=== PATIENT | female | born 1950 | race Caucasian/White ===

== ENCOUNTER 2023-11-17 07:36 | Day surgery (SDC) | payer OTHER, SELFPAY ==
--- NOTE | 2023-11-17 | OP_ITS ---
OPERATION DATE: 11/17/2023 SURGEON: Mic Sanches D.O. PREOPERATIVE DIAGNOSIS: Nuclear sclerotic cataract left eye POSTOPERATIVE DIAGNOSIS: Nuclear sclerotic cataract left eye. PROCEDURE NAME: Cataract extraction with intraocular lens placement of the left eye. ANESTHESIA: Topical ESTIMATED BLOOD LOSS: Zero. COMPLICATIONS: None. PROCEDURE: The patient was brought to the Operating Room in supine position. After proper identification, the left eye was prepped and draped in a sterile ophthalmic fashion. A paracentesis was created at the 5 o'clock position. Approximately 1 cc of unpreserved Xylocaine was injected into the anterior chamber followed by Amvisc Plus. Using a 2.6 mm Keratome blade, a clear corneal incision was created at the 2 o'clock limbus. A cystotome was then used to begin a curvilinear capsulorrhexis that was continued for 360 degrees with the Utrata forceps. BSS on a 26 gauge cannula was injected beneath the anterior capsule to hydrodissect as well as hydrodelineate the lens. After ensuring mobility, phacoemulsification was performed in a [id number]-type fashion. After all nuclear material had been removed from the eye, IA was introduced and all residual cortical material was cleaned up. Additional Amvisc Plus was injected into the posterior bag and a lens model MX60, 22.5 diopters was injected and dialed into position. After ensuring centration, IA was re- introduced into the anterior chamber and all residual Amvisc Plus was removed from the eye. BSS on a 30 gauge cannula was injected into the stroma of both the clear corneal incision as well as paracentesis to hydrate the wounds. Additional BSS was injected into the anterior chamber to pressurize the eye at approximately 20 to 22 mmHg by finger tension. 0.1 cc of antibiotic was injected into the anterior chamber, and Weck-Leticia sponges were used to check the wounds to be watertight. One drop of apraclonidine and one drop of prednisolone acetate were placed into the eye and a shield was placed over top. The patient was sent to the postoperative area in satisfactory condition to follow up the following day for postoperative care. RENUKA
--- NOTE | 2023-11-17 | HP_ITS ---
PREOPERATIVE HISTORY AND PHYSICAL ? Date:? 11/16/2023 ? HISTORY:? The patient is a 73-year-old white female with complaints of declining vision out of her left eye.? She states that the gradual onset of this has been occurring over the last 1-2 years.? She recently stated that she is having more difficulty driving in the evening time, due to headlights creating glare and halos.? She also states having difficulty seeing road signs at a distance.? She is feeling that her TV watching ability is worsening with the TV guide becoming more blurry.? ? PAST OCULAR HISTORY:? Denies. ? PAST MEDICAL HISTORY:? Hypertension, GERD.? ? SOCIAL HISTORY:? Denies tobacco, alcohol or recreational drug abuse. ? SYSTEMIC MEDICATIONS:? Include omeprazole, lisinopril, amlodipine.? ? ALLERGIES TO MEDICATIONS:? Denies. ? REVIEW OF SYSTEMS:? No pertinent positives. ? PHYSICAL EXAM: ? GENERAL:? In general, she is awake, alert and oriented x3, well developed, well nourished, in no acute distress.? ? HEART:? Regular rate and rhythm. ? LUNGS:? Clear bilaterally. ? ABDOMEN:? Soft, non-tender, non-distended. ? EXTREMITIES:? No pitting edema. ? OPHTHALMIC EXAM:? Revealed a visual acuity of 20/60 in the right eye and 20/40 in the left eye, glared to 20/200 and 20/100 respectively.? Slit lamp exam revealed blepharitis with a severe decrease in tear film bilaterally.? Conjunctiva, cornea, anterior chamber and iris were within normal limits bilaterally.? Lens status demonstrated 2-3+ nuclear sclerosis with vacuoles and 1+ PSC bilaterally.? ? FUNDUS EXAM:? Revealed good view with good dilation bilaterally.? Optic discs, macula, vessels, periphery and vitreous were within normal limits bilaterally.?? ? ASSESSMENT AND PLAN:? Visually significant cataract, left eye.? After the risks, benefits, alternatives as well as expectations were delivered to the patient, she elected to go forward with cataract removal.? She understands those risks to include but not limited to infection, bleeding, loss of vision or loss of the eye itself.? Secondly, she understands that postoperatively she is likely to require spectacle correction for her best visual acuity.? Finally, a complete ophthalmic exam was performed and there was not determined to be any other source of vision decline other than that of cataract.? ? After understanding all risks as well as expectations, she elected to go forward with the procedures as listed above and will be doing so in the near future. RENUKA
[2023-11-17] MEDS: CYCLOPENTOLATE HCL 1% OP SOL 40 DROP/2 ML BOTTLE OP ×4 (07:54→08:35)
[2023-11-17] MEDS: DIAZEPAM 5 MG TABLET PO (07:54)
[2023-11-17] MEDS: TROPICAMIDE 1% OP SOL 300 DROP/15 ML BOTTLE OP ×4 (07:54→08:35)
[2023-11-17] MEDS: BESIFLOXACIN HCL 100 DROP DROPS.SUSP OP ×4 (07:55→08:36)
[2023-11-17] MEDS: PHENYLEPHRINE HCL 2.5% OP SOL 40 DROP/2 ML BOTTLE OP ×4 (07:55→08:35)
[2023-11-17 08:08] VITALS: BP 190/86; PULSE 105; TEMP 36.1; O2SAT 99
[2023-11-17] MEDS: BETADINE POVIDONE-IODINE 5% OP SOL 30 ML BOTTLE OP (09:04)
[2023-11-17] MEDS: LIDOCAINE 2% JELLY 10 ML TOPICAL (09:04)
[2023-11-17] MEDS: PROPARACAINE HCL 0.5% 300 DROP/15 ML BOTTLE OP (09:05)
[2023-11-17 09:10] VITALS: BP 201/101; PULSE 96; O2SAT 99
[2023-11-17 09:14] VITALS: BP 197/93; PULSE 98; O2SAT 100
[2023-11-17] MEDS: LIDOCAINE HCL 1% PF 20 MG/2 ML VIAL INJ (09:16)
[2023-11-17] MEDS: PHENYLEPHRINE/KETOROLAC 1-0.3% ML VIAL 4 ML IRR (09:16)
[2023-11-17] MEDS: HYALURONATE SODIUM 16 MG/ML SYRINGE OP (09:16)
[2023-11-17] MEDS: TETRACAINE HCL 0.5% OP SOL 80 DROP/4 ML BOTTLE OP (09:17)
[2023-11-17] MEDS: CEFUROXIME SODIUM 750 MG, 0.9 % SODIUM CHLORIDE 16.3 ML OP (09:17)
[2023-11-17] MEDS: APRACLONIDINE HCL 0.5% SOL 100 DROP/5 ML BOTTLE OP (09:17)
[2023-11-17] MEDS: PREDNISOLONE ACETATE OP 1% SUSP 100 DROPS/5 ML 1 DROP OP (09:18)
== END 2023-11-17 09:43 | disposition home or self-care (01) ==
PROVIDERS: Visit Provider Ophthalmology
PROC: (CPT 66984; principal; 2023-11-17 08:40)
DX: H25.12 Age-related nuclear cataract, left eye (principal); I10 Essential (primary) hypertension; K21.9 Gastro-esophageal reflux disease without esophagitis
CPT/HCPCS: 66984; J0697; V2630

== ENCOUNTER 2023-12-15 06:40 | Day surgery (SDC) | payer MEDICARE, OTHER, SELFPAY ==
--- NOTE | 2023-12-15 | HP_ITS ---
PREOPERATIVE HISTORY AND PHYSICAL ? Date:? 12/13/2023 ? HISTORY:? The patient is a 73-year-old white female with complaints of declining vision out of her right eye.? She generally feels this has been occurring over the last 12 months, rapidly progressing.? She is having difficulty reading and watching TV.? Driving at night time and distant road signs have become more difficult.? She states this is moderate to severe in nature and is uncomfortable driving now at night time.? ? PAST OCULAR HISTORY / PAST MEDICAL HISTORY / SOCIAL HISTORY / MEDICATIONS / ALLERGIES TO MEDICATIONS / REVIEW OF SYSTEMS / PHYSICAL EXAMINATION:? Unchanged from previously dictated. ? ASSESSMENT AND PLAN:? Visually significant cataract, right eye.? After the risks, benefits, and alternatives as well as expectations were delivered to the patient, she elected to go forward with cataract removal.? She understands those risks to include but not limited to infection, bleeding, loss of vision or loss of the eye itself.? Secondly, she understands that postoperatively she is likely to require spectacle correction for her best visual acuity.? Finally, a complete ophthalmic exam was performed and there was not determined to be any other source of vision decline other than that of cataract.? After understanding all risks as well as expectations, she elected to go forward with the procedure as listed above and will be doing so in the near future. RENUKA
--- NOTE | 2023-12-15 | OP_ITS ---
OPERATION DATE: 12/15/2023 SURGEON: Mic Sanches D.O. PREOPERATIVE DIAGNOSIS: Nuclear sclerotic cataract right eye. POSTOPERATIVE DIAGNOSIS: Nuclear sclerotic cataract right eye. PROCEDURE NAME: Cataract extraction with intraocular lens placement of the right eye. ANESTHESIA: Topical ESTIMATED BLOOD LOSS: Zero. COMPLICATIONS: None. PROCEDURE: The patient was brought to the Operating Room in supine position. After proper identification, the right eye was prepped and draped in a sterile ophthalmic fashion. A paracentesis created at the 11 o'clock position. Approximately 1 cc of unpreserved Xylocaine was injected into the anterior chamber followed by Amvisc Plus. Using a 2.6 mm Keratome blade, a clear corneal incision was created at the 9 o'clock limbus. A cystotome was then used to begin a curvilinear capsulorrhexis that was continued for 360 degrees with the Utrata forceps. BSS on a 26 gauge cannula was injected beneath the anterior capsule to hydrodissect as well as hydrodelineate the lens. After ensuring mobility, phacoemulsification was performed in a [id number]-type fashion. After all nuclear material had been removed from the eye, IA was introduced and all residual cortical material was cleaned up. Additional Amvisc Plus was injected into the posterior bag and a lens model MX60, 22.0 diopters was injected and dialed into position. After ensuring centration, IA was reintroduced into the anterior chamber and all residual Amvisc Plus was removed from the eye. BSS on a 30 gauge cannula was injected into the stroma of both the clear corneal incision as well as paracentesis to hydrate the wounds. Additional BSS was injected into the anterior chamber to pressurize the eye at approximately 20 to 22 mmHg by finger tension. 0.1 cc of antibiotic was injected into the anterior chamber and Weck-Leticia sponges were used to check the wounds to be watertight. One drop of apraclonidine and one drop of prednisolone acetate placed into the eye and a shield was placed over top. The patient was sent to the postoperative area in satisfactory condition to follow up the following day for postoperative care. RENUKA
--- OUTSIDE RECORDS SUMMARY | 2023-12-15 06:43 | XMS_ITS | CCD ---
Author Organization [facility] Care Team Providers Care Rn Ostomy Name Role Phone KVNG BRITO Attending Unavailable LISSETTE HANSEN Attending Unavailable KVNG BRITO Attending Unavailable RUTHIE, Dre Moore Attending Unavailable RUTHIE, Dre Moore Admitting Unavailable KAPRITCHIE, Dre Moore Attending Unavailable KAPRITCHIE, Dre Moore Attending Unavailable KAPLE, Dre Moore Attending Unavailable KAPLE, Dre Moore Admitting Unavailable KAPLE, Dre Moore Attending Unavailable KAPRITCHIE, Dre Moore Attending Unavailable Allergies Allergy Classification Reported Allergen(s) Allergy Type Date of Onset Reaction(s) Facility (1 source) No Known Medication Allergies; Translations: [No Known Medication Allergies] Propensity to adverse reactions (disorder) [facility] Results Test Name Value Interpretation Reference Range Facility Ambulatory Visit Summaryon 0 12-09-2023 Ambulatory Visit Summary Ambulatory Visit Summary NEW DILL :1950 Visit Date:12/09/2023 Ambulatory Visit Instructions Your Diagnosis HTN (hypertension) Screening mammogram for breast cancer, Breast cancer screening by mammogram Class 2 severe obesity due to excess calories with serious comorbidity and body mass index (BMI) of 39.0 to 39.9 in adult Familial hypercholesteremia Chronic GERD BMI 39.0-39.9,adult Prediabetes Primary ovarian failure Bilateral shoulder pain Frontal sinusitis Neuropathy of foot Low serum vitamin D Your Care Team Attending Physician - Dre HENDRICKS DO, FAAFP Primary Care Physician - Dre HENDRICKS DO, FAAFP This Is Your Medications List amoxicillin-clavulanate (Augmentin 875 mg oral tablet) ipratropium nasal (Atrovent 0.03% [place]) Contact prescribing physician if questions or concerns amlodipine (amLODIPine 5 mg Tab) fluticasone nasal (Flonase 0.05 mg/inh [place]) lisinopril (lisinopril 20 mg Tab) naproxen (naproxen 500 mg Tab) omeprazole (omeprazole 20 mg Cap-DR) Procedures Performed Colonoscopy (12/30/2016), section, Gallbladder, Tonsillectomy. Discharge Vitals Temperature (Oral) 36.6 ?C Heart Rate (Peripheral) 78 Respiratory Rate 16 Blood Pressure 122/72 Height 162 cm Height 64 in Weight 103.9 kg Weight 228.58 lb BMI 39.59 What to do next Scheduled Follow-Up Appointments 2023 8:30 AM EDT Where: [facility] Mammography 2023 9:00 AM EDT Where: [facility] Bone Density Tuesday 9:30 AM EDT Where: [facility] [address], [place] [address]- You Need to Complete the Following HgbA1c, Blood, Routine collect, 12/09/23, Order for future visit, Lab Collect, Prediabetes, Required & Missing, Print Label By Order Location Vitamin D 25 Hydroxy, Blood, Routine collect, 12/09/23, Order for future visit, Lab Collect, Low serum vitamin D, Required & Missing, Print Label By Order Location Medications What How Much When Why Instructions New amoxicillin-clavulanate (Augmentin 875 mg oral tablet) 1 Tablets By Mouth Every 12 hours Duration: 10 Days Pickup at [facility]/pharmacy #[id number] New ipratropium nasal (Atrovent 0.03% [place]) 2 Sprays Nasal Inhalation 3 times a day Refills: 1 Pickup at [facility]/pharmacy #[id number] Unchanged amlodipine (amLODIPine 5 mg Tab) 1 Tablets By Mouth Every day Contact prescribing physician if questions or concerns Unchanged fluticasone nasal (Flonase 0.05 mg/ inh [place]) 2 Sprays Nasal Inhalation Every day Frontal sinusitis each nostril Contact prescribing physician if questions or concerns Unchanged lisinopril (lisinopril 20 mg Tab) 20 Milligram By Mouth Every day Contact prescribing physician if questions or concerns Unchanged naproxen (naproxen 500 mg Tab) 1 Tablets By Mouth 2 times a day as needed for Pain Bilateral shoulder pain Neck pain, chronic Contact prescribing physician if questions or concerns Unchanged omeprazole (omeprazole 20 mg Cap-DR) 20 Milligram By Mouth Every day Contact prescribing physician if questions or concerns Pharmacy Information [facility]/pharmacy #[id number]: [address] [place], [place] [id number] [phone] Allergies No Known Allergies No Known Medication Allergies Problems Ongoing - Any problem that you are currently receiving treatment for. Bilateral shoulder pain Breast cancer screening by mammogram Chronic GERD Familial hypercholesteremia Fatigue HTN (hypertension) Low serum vitamin D Lumbosacral pain Menopause Neck pain, chronic Neuropathy of foot Osteoarthritis of both hands Prediabetes Primary ovarian failure Screening mammogram for breast cancer Well adult health check Historical - Any problem that you are no longer receiving treatment for. BMI 38.0-38.9,adult Morbid obesity Screening mammogram, encounter for Patient Survey You may receive a survey via text or e-mail asking about your office visit. Please share your experience with us by completing your survey. We appreciate your feedback and thank you for choosing us for your care. [facility] Family Medicine Office/Clini c Noteon 12-09-2023 Family Medicine Office/Clinic Note Family Medicine Office/Clinic Note Chief Complaint Patient here for 6 month f/u on htn, chol, gerd. Had blood work done she wants to discuss. History of Present Illness Patient here for 6 month f/u on htn, chol, gerd. Had blood work done she wants to discuss. Here for follow up Have you had any ER visits or any hospitalizations since last visit? no Are you compliant with your medications and no difficulty affording your medications? yes Do you have side effects from the medication? no Are you compliant with your diet? yes Do you exercise? yes Do you have any of the following symptoms? Chest pain? no Palpitations? no BRYANT/SOB? no Orthopnea? no PND? no Edema? no Have you had any recent cardiopulmonary testing? no Some L lower rib muscle tenderness Review of Systems PHQ Score Initial Depression Screen Score: 0 SCORE ROS - Provider Constitutional: no fever, no chills, no sweats, no weakness. Skin: no Jaundice, no rash, no lesions, no petechiae. ENMT: no ear pain, no sore throat, no congestion, no hoarseness. Respiratory: no shortness of breath, no cough, no orthopnea, no wheezing. Cardiovascular: no chest pain, no palpitations, no edema. Gastrointestinal: no nausea, no vomiting, no diarrhea, no GI bleeding.no constipationnoheartburn Genitourinary: no dysuria, no hematuria, no discharge, no pain.nofreq/urgency Musculoskeletal: no back pain, no trauma.nojoint pain Neurologic: no headache, no dizziness, no numbness, no weakness. Psychiatric: no sleeping problems, no irritability, no mood swings/depression. Heme/Lymph: no bleeding tendency, no bruising tendency, no petechiae, no swollen lymph nodes no Allergy/Imunology no seasonal allergies, no food allergies, no recurrent infections, no impaired immunity. Additional ROS info: Except as noted in the above Review of Systems and in the History of Present Illness all other systems have been reviewed and are negative or noncontributory. Physical Exam Vitals & Measurements T: 36.6 ?C(Oral) HR: 78(Peripheral) RR: 16 BP: 122/72 SpO2: 100% HT: 64 in HT: 162 cm WT: 103.9 kg WT: 228.58 lb BMI: 39.59 General: Well developed, well nourished, in no acute distress Mouth: Mucous membranes moist. Normal oropharynx, and posterior pharynx without lesions or exudates. Tongue normal Neck: Neck supple. No masses or palpable cervical nodes. Trachea midline. Thyroid without nodules, masses, tenderness, or enlargement Lungs: Normal respiratory effort and clear to auscultation Cardio: Regular rate and rhythm, normal S1 and S2, no murmur, no rub Abdomen: Soft, non-distended, non-tender. no G/R/S/Masses Musculoskeletal: No deformity or scoliosis noted. Normal range of motion. Joints normal. No erythema, edema, effusion, or ecchymosis Extremity: No clubbing, cyanosis, edema, or deformity, with normal ROM in both upper and lower bilateral extremities Neurologic: Grossly normal Skin: No rashes, ulcerations, or suspicious lesions Mental Status: Alert and oriented x3. Normal mood and affect Assessment/Plan 1. HTN (hypertension) (I10: Essential (primary) hypertension) Good control with diet exercise, amlodipine 5 mg a day, lisinopril 20 mg a day Ordered: Complex E&M Add on G2211 2. Screening mammogram for breast cancer, (Z12.31: Encounter for screening mammogram for malignant neoplasm of breast)Breast cancer screening by mammogram 3. Class 2 severe obesity due to excess calories with serious comorbidity and body mass index (BMI) of 39.0 to 39.9 in adult (E66.01: Morbid (severe) obesity due to excess calories) Diet and exercise a BMI goal of 25 The standard range for ages 18 and older is >=18.5 and < 25 kg/m2. Your BMI today was above this range, this falls in the overweight to obese category and there are medical benefits to weight loss. We can offer counselling, referral, and/or medical support in addressing this problem. Your BMI and weight management will be followed at subsequent visits. No meds per pt 4. Familial hypercholesteremia (E78.01: Familial hypercholesterolemia) Diet and exercise: Statins not help in past. Patient defers any medication at this time she may reconsider with next visit. She wishes to increase exercise and improve her diet 5. Chronic GERD (K21.9: Gastro-esophageal reflux disease without esophagitis) Diet and exercise 6. BMI 39.0-39.9,adult (Z68.39: Body mass index [BMI] 39.0-39.9, adult) The standard range for ages 18 and older is >=18.5 and < 25 kg/m2. Your BMI today was above this range, this falls in the overweight to obese category and there are medical benefits to weight loss. We can offer counselling, referral, and/or medical support in addressing this problem. Your BMI and weight management will be followed at subsequent visits. 7. Prediabetes (R73.03: Prediabetes) Diet and exercise at BMI goal of 25 along with weight loss Ordered: HgbA1c 8. Primary ovarian failure (E28.39: Other primary ovarian failure) W (more content not included)... [facility] Comment on above: Result Comment: Electronically Signed By : Dre HENDRICKS DO, FAAFP\.cami\Date and Time Signed: 12/09/23 08:38 EDT BMPon 12-01-2023 Anion gap [Moles/Vol] 11 mmol/L Normal 6-16 [facility] Comment on above: Performed By: #### [id number] #### [facility] [address] [place] [address] Calcium [Mass/Vol] 10.1 mg/dL Normal 8.9-11.1 [facility] Comment on above: Performed By: #### [id number] #### [facility] [address] [place] [address] Chloride [Moles/Vol] 103 mmol/L Normal 101-111 [facility] Comment on above: Performed By: #### [id number] #### [facility] [address] [place] [address] CO2 [Moles/Vol] 26 mmol/L Normal 21-31 [facility] Comment on above: Performed By: #### [id number] #### [facility] [address] [place] [address] Creatinine [Mass/Vol] 0.6 mg/dL Normal 0.5-1.3 [facility] Comment on above: Performed By: #### [id number] #### [facility] [address] [place] [address] Glucose [Mass/Vol] 114 mg/dL Normal 55-199 [facility] Comment on above: Performed By: #### [id number] #### [facility] [address] [place] [address] Potassium [Moles/Vol] 4.4 mmol/L Normal 3.5-5.3 [facility] Comment on above: Performed By: #### [id number] #### [facility] [address] [place] [address] Sodium [Moles/Vol] 136 mmol/L Normal 135-145 [facility] Comment on above: Performed By: #### [id number] #### [facility] [address] [place] [address] Urea nitrogen [Mass/Vol] 12 mg/dL Normal 5-21 [facility] Comment on above: Performed By: #### [id number] #### [facility] [address] [place] [address] Urea nitrogen/Creatin ine [Mass ratio] 20 No Units Normal 10-20 [facility] Comment on above: Performed By: #### [id number] #### [facility] [address] [place] [address] CBC w/ Auto Diffon 4 Basophils/100 WBC (Bld) 0.9 % Normal 0.0-2.0 [facility] Comment on above: Performed By: #### [id number] #### [facility] [address] [place] [address] Basophils/Leukoc ytes Auto (Bld) [Pure # fraction] 0.1 E9/L Normal 0.0-0.2 [facility] Comment on above: Performed By: #### [id number] #### [facility] [address] [place] [address] Eosinophils (Bld) [#/Vol] 0.1 E9/L Normal 0.0-0.5 [facility] Comment on above: Performed By: #### [id number] #### [facility] [address] [place] [address] Eosinophils/100 WBC (Bld) 2.6 % Normal 0.0-8.0 [facility] Comment on above: Performed By: #### [id number] #### [facility] [address] [place] [address] Erythrocyte distribution width (RBC) [Ratio] 14.0 % Normal 10.9-14.2 [facility] Comment on above: Performed By: #### [id number] #### [facility] [address] [place] [address] Hematocrit (Bld) [Volume fraction] 38.9 % Normal 34.0-46.0 [facility] Comment on above: Performed By: #### [id number] #### [facility] [address] [place] [address] Hemoglobin (Bld) [Mass/Vol] 13.6 g/dL Normal 12.0-16.0 [facility] Comment on above: Performed By: #### [id number] #### [facility] [address] [place] [address] Lymphocytes (Bld) [#/Vol] 2.5 E9/L Normal 1.0-4.0 [facility] Comment on above: Performed By: #### [id number] #### [facility] [address] [place] [address] Lymphocytes/100 WBC (Bld) 42.8 % Normal 14.0-50.0 [facility] Comment on above: Performed By: #### [id number] #### [facility] [address] [place] [address] MCH (RBC) [Entitic mass] 31.2 pg Normal 27.0-34.0 [facility] Comment on above: Performed By: #### [id number] #### [facility] [address] [place] [address] MCHC (RBC) [Mass/Vol] 34.8 g/dL Normal 31.4-36.0 [facility] Comment on above: Performed By: #### [id number] #### [facility] [address] [place] [address] MCV (RBC) [Entitic vol] 89.7 fL Normal 80.0-100.0 [facility] Comment on above: Performed By: #### [id number] #### [facility] [address] [place] [address] Monocytes (Bld) [#/Vol] 0.6 E9/L Normal 0.2-1.0 [facility] Comment on above: Performed By: #### [id number] #### [facility] [address] [place] [address] Neutrophils (Bld) [#/Vol] 2.5 E9/L Normal 2.0-7.5 [facility] Comment on above: Performed By: #### [id number] #### [facility] [address] [place] [address] Neutrophils/100 WBC (Bld) 43.6 % Normal 36.0-75.0 [facility] Comment on above: Performed By: #### [id number] #### [facility] [address] [place] [address] Platelet 322.0 E9/L Normal 150.0-500.0 [facility] Comment on above: Performed By: #### [id number] #### [facility] [address] [place] [address] Platelet mean volume (Bld) [Entitic vol] 7.4 fL Normal 6.4-10.8 [facility] Comment on above: Performed By: #### [id number] #### [facility] [address] [place] [address] RBC (Bld) [#/Vol] 4.3 E12/L Normal 4.3-5.9 [facility] Comment on above: Performed By: #### [id number] #### [facility] [address] [place] [address] WBC corrected for nucl RBC Auto (Bld) [#/Vol] 5.7 E9/L Normal 4.0-11.0 [facility] Comment on above: Performed By: #### [id number] #### [facility] [address] [place] [address] Hep Func Panelon 12-01-2023 Albumin [Mass/Vol] 4.3 g/dL Normal 3.3-5.0 [facility] Comment on above: Performed By: #### [id number] #### [facility] [address] [place] [address] Albumin/Globulin (S) [Mass conc ratio] 1.5 Normal 1.1-2.2 [facility] Comment on above: Performed By: #### [id number] #### [facility] [address] [place] [address] ALP [Catalytic activity/Vol] 74 Int._Unit/L Normal 21-98 [facility] Comment on above: Performed By: #### [id number] #### [facility] [address] [place] [address] ALT No additional P-5'-P [Catalytic activity/Vol] 26 Int._Unit/L Normal 6-46 [facility] Comment on above: Performed By: #### [id number] #### [facility] [address] [place] [address] AST [Catalytic activity/Vol] 19 Int._Unit/L Normal 5-43 [facility] Comment on above: Performed By: #### [id number] #### [facility] [address] [place] [address] Bilirubin [Mass/Vol] 0.6 mg/dL Normal 0.0-1.1 [facility] Comment on above: Performed By: #### [id number] #### [facility] [address] [place] [address] Bilirubin.direct [Mass/Vol] 0.1 mg/dL Normal 0.0-0.4 [facility] Comment on above: Performed By: #### [id number] #### [facility] [address] [place] [address] [Mass or moles/Vol] 0.5 mg/dL Normal 0.1-0.9 [facility] Comment on above: Performed By: #### [id number] #### [facility] [address] [place] [address] Globulin (S) [Mass/Vol] 2.8 g/dL Normal 1.4-4.0 [facility] Comment on above: Performed By: #### [id number] #### [facility] [address] [place] [address] Protein [Mass/Vol] 7.1 g/dL Normal 6.0-7.8 [facility] Comment on above: Performed By: #### [id number] #### [facility] [address] [place] [address] [id number] 12-01-2023 HbA1c (Bld) [Mass fraction] 6.1 % High <=5.9 [facility] Comment on above: Performed By: #### [id number] #### [facility] [address] [place] [address] Lipid Panelon 12-01-2023 Cholesterol [Mass/Vol] 301 mg/dL High 120-200 [facility] Comment on above: Performed By: #### [id number] #### [facility] [address] [place] [address] Cholesterol in HDL [Mass/Vol] 69 mg/dL Invalid Interpretation Code [facility] Comment on above: Result Comment: '>= 60 LOW RISK' '<= 40 HIGH RISK' Performed By: #### [id number] #### [facility] [address] [place] [address] Cholesterol in LDL [Mass/Vol] 211 mg/dL High <=129 [facility] Comment on above: Performed By: #### [id number] #### [facility] [address] [place] [address] Cholesterol in VLDL [Mass/Vol] 26 mg/dL Normal 7-40 [facility] Comment on above: Performed By: #### [id number] #### [facility] [address] [place] [address] Triglyceride [Mass/Vol] 132 mg/dL Normal <=149 [facility] Comment on above: Performed By: #### [id number] #### [facility] [address] [place] [address] eGFRon 12-01-2023 eGFR 95 mL/min/1.73 m2 Normal >=59 [facility] Comment on above: Performed By: #### [id number] #### [facility] [address] [place] [address] Ambulatory Visit Summaryon 0 06-10-2023 Ambulatory Visit Summary FUENTESNEW Filomena :1950 Visit Date:06/10/2023 Ambulatory Visit Instructions Your Diagnosis Annual visit for general adult medical examination without abnormal findings At risk for decreased bone density Screening mammogram for breast cancer Familial hypercholesteremia Fasting hyperglycemia BMI 39.0-39.9,adult Your Care Team Attending Physician - Dre HENDRICKS DO, FAAFP Primary Care Physician - Dre HENDRICKS DO, FAAFP This Is Your Medications List amlodipine (amLODIPine 5 mg Tab) amoxicillin-clavulanate (Augmentin 875 mg oral tablet) fluticasone nasal (Flonase 0.05 mg/inh [place]) lisinopril (lisinopril 20 mg Tab) naproxen (naproxen 500 mg Tab) omeprazole (omeprazole 20 mg Cap-DR) Procedures Performed Colonoscopy (12/30/2016), section, Gallbladder, Tonsillectomy. Discharge Vitals Temperature (Oral) 36.6 ?C Heart Rate (Peripheral) 80 Blood Pressure 130/82 Height 162 cm Height 64 in Weight 103 kg Weight 226.6 lb BMI 39.25 What to do next Scheduled Follow-Up Appointments Tuesday 8:00 AM EDT With: Dre HENDRICKS DO, FAAFP Where: [facility] Invalid Interpretation Code [address] [place] [address]- \.br\ You Need to Complete the Following\.br \ Basic Metabolic Panel, Blood, Routine collect, 06/10/23, Order for future visit, Lab Collect, Well adult health check [facility] Ambulatory Visit Summary NEW D[place] :1950 Visit Date:06/10/2023 Ambulatory Visit Instructions Your Diagnosis Annual visit for general adult medical examination without abnormal findings At risk for decreased bone density Screening mammogram for breast cancer Familial hypercholesteremia Fasting hyperglycemia BMI 39.0-39.9,adult Your Care Team Attending Physician - Dre HENDRICKS DO, FAAFP Primary Care Physician - Dre HENDRICKS DO, FAAFP This Is Your Medications List amlodipine (amLODIPine 5 mg Tab) amoxicillin-clavulanate (Augmentin 875 mg oral tablet) fluticasone nasal (Flonase 0.05 mg/inh [place]) lisinopril (lisinopril 20 mg Tab) naproxen (naproxen 500 mg Tab) omeprazole (omeprazole 20 mg Cap-DR) Procedures Performed Colonoscopy (12/30/2016), section, Gallbladder, Tonsillectomy. Discharge Vitals Temperature (Oral) 36.6 ?C Heart Rate (Peripheral) 80 Blood Pressure 130/82 Height 162 cm Height 64 in Weight 103 kg Weight 226.6 lb BMI 39.25 What to do next Scheduled Follow-Up Appointments Tuesday 8:00 AM EDT With: Dre HENDRCIKS DO, FAAFP Where: [facility] Invalid Interpretation Code [address], [place] [address]- \.br\ You Need to Complete the Following\.br \ Basic Metabolic Panel, Blood, Routine collect, 06/10/23, Order for future visit, Lab Collect, Well adult health check [facility] Office/Clini c Noteon 06-10-2023 Family Medicine Office/Clinic Note Chief Complaint Subsequent Medicare Wellness Visit Review of Systems PHQ Score Initial Depression Screen Score: 0 SCORE Physical Exam Vitals & Measurements T: 36.6 ?C(Oral) HR: 80(Peripheral) BP: 130/82 SpO2: 100% HT: 162 cm HT: 64 in WT: 103 kg WT: 226.6 lb BMI: 39.25 Assessment/Plan 1. Annual visit for general adult medical examination without abnormal findings (Z00.00: Encounter for general adult medical examination without abnormal findings) The patient was given a customized and personalized print out of all the current AHRQ USPSTF?s recommendations for preventative services and all current CDC recommended immunizations, relevant risk recommendations and the following patient brochures were given. Reviewed Medicare Prevention Services checklist. CDC-Falls Prevention and home safety screening reviewed. Patient states 1fall in last 12 months, no ED visit or injuries. Voices no worry about falling. Exhibits no problems with sitting, standing or ambulation. Patient aware with keeping walk way area free of clutter to prevent tripping and/or falling. [place] Advance Directives reviewed. Packet declined at this time. Patient denies any problems with ADL?s and Instrumental ADL?s. Cognitive screening completed with memory and clock face drawing. No deficits noted. Immunization record reviewed, discussed Shingrix vaccine with educational handout and availability. COVID vaccines have been administered, with Boosters received. Allergies and medications reviewed and up to date. No concerns with taking medication as prescribed. Reviewed OTC medications, medication list up to date. Blood tests were reviewed: Discussed what tests need to be updated. Labs were ordered with PCP visit today. Will have completed prior to next PCP visit. No concerns with bowel/ bladder. Colonoscopy last completed 12/30/2016 with a 10 year repeat. Reviewed pain symptoms : chronic neck pain on and off, taking Naproxen as ordered, states effective. Reviewed all outside providers that patient follows. Last visit summary notes available in chart and/or have been requested. Patient declines any signs or symptoms of depression at this time. 8 minutes spent with screening and documentation. PHQ2 screening score 0. Patient denies any alcohol intake at this time. 8 minutes spent with screening and documentation. Audit score 0. Follow up scheduled with PCP, 12/09/2023. AWV has been scheduled, 06/08/2024. 2. At risk for decreased bone density (Z91.89: Other specified personal risk factors, not elsewhere classified) Patient due to have repeated DEXA scan. Last completed 01/01/2020. Encouraged with recommended Calcium supplements and light weight bearing exercises daily. Dexa has been ordered, patient to schedule self at a later time. Will follow up with PCP as needed. 3. Screening mammogram for breast cancer (Z12.31: Encounter for screening mammogram for malignant neoplasm of breast) Patient due for mammogram screening. Last completed . Encouraged to continue with home self breast exams. Mammogram has been ordered, patient to schedule self at a later time. Will follow up with PCP as needed. 4. Familial hypercholesteremia (E78.01: Familial hypercholesterolemia) No Statin medication taken at this time. Encouraged to eat a diet that is low in saturated fats. Stressed importance of loosing weight as being overweight does produce more lipids. Patient does not drink alcohol and has never smoked. Risks may also increase with a family history of hyperlipidemia. Encouraged with healthy dietary choices to reduce risk factors associated with CVA. Will continue to follow up with labs as directed. 5. Fasting hyperglycemia (R73.01: Impaired fasting glucose) Screened for type 2 diabetes. Risk score: 6. Patient denies having any family history with Diabetes. BS reviewed, reminded to follow ADA dietary recommendations. Monitor portion control with carbs/fats/sat. fats. Will continue to follow up with labs as directed. 6. BMI 39.0-39.9,adult (Z68.39: Body mass index [BMI] 39.0-39.9, adult) The standard range for ages 18 and older is >18.5 and <25kg/m2. Your BMI today was 39.44, this falls into the obesity range. BMI meaning contributes to your health with a greater risk for HTN, high cholesterol, body pain, stroke, heart disease, Type 2 DM and early . Encouraged with healthy nutritional choices and the importance with daily physical activity. Your BMI and weight management will be followed with PCP visits. Follow-up No qualifying data available Patient Education High Cholesterol Cooking With Less Salt Exercising to Lose Weight BMI for Adults Problem List/Past Medical History Ongoing Bilateral shoulder pain Chronic GERD Familial hypercholesteremia Fasting hyperglycemia Fatigue Frontal sinusitis HTN (hypertension) Low serum vitamin D Lumbosacral pain Menopause Neck pain, chronic Osteoarthritis of both hands Primary ovarian failure Screening mammog (more content not included)... [facility] Comment on above: Result Comment: Electronically Signed By : Dre HENDRICKS DO, FAAFP\.br\Date and Time Signed: 06/10/23 16:07 EDT\.br\Electronically Co-Signed By: Marianna Reyez LPN\.br\Date and Time Co-Signed: 06/10/23 10:00 EDT Family Medicine Office/Clinic Note Chief Complaint Patient here for 6 month f/u on htn, chol, gerd. States she has been having a lot of sinus drainage History of Present Illness Here for follow up Have you had any ER visits or any hospitalizations since last visit? no Are you compliant with your medications and no difficulty affording your medications? yes Do you have side effects from the medication? no Are you compliant with your diet? yes Do you exercise? yes Do you have any of the following symptoms? Chest pain? no Palpitations? no BRYANT/SOB? no Orthopnea? no PND? no Edema? no Have you had any recent cardiopulmonary testing? no Review of Systems PHQ Score Initial Depression Screen Score: 0 SCORE ROS - Provider Constitutional: no fever, no chills, no sweats, no weakness. Skin: no Jaundice, no rash, no lesions, no petechiae. ENMT: no ear pain, no sore throat, no congestion, no hoarseness. Respiratory: no shortness of breath, no cough, no orthopnea, no wheezing. Cardiovascular: no chest pain, no palpitations, no edema. Gastrointestinal: no nausea, no vomiting, no diarrhea, no GI bleeding.no constipationnoheartburn Genitourinary: no dysuria, no hematuria, no discharge, no pain.nofreq/urgency Musculoskeletal: no back pain, no trauma.nojoint pain Neurologic: no headache, no dizziness, no numbness, no weakness. Psychiatric: no sleeping problems, no irritability, no mood swings/depression. Heme/Lymph: no bleeding tendency, no bruising tendency, no petechiae, no swollen lymph nodes no Allergy/Imunology no seasonal allergies, no food allergies, no recurrent infections, no impaired immunity. Additional ROS info: Except as noted in the above Review of Systems and in the History of Present Illness all other systems have been reviewed and are negative or noncontributory. Physical Exam Vitals & Measurements T: 36.6 ?C(Oral) HR: 80(Peripheral) RR: 18 BP: 130/82 SpO2: 100% HT: 64 in HT: 162 cm WT: 103.5 kg WT: 227.7 lb BMI: 39.44 General: Well developed, well nourished, in no acute distress Mouth: Mucous membranes moist. Normal oropharynx, and posterior pharynx without lesions or exudates. Tongue normal Neck: Neck supple. No masses or palpable cervical nodes. Trachea midline. Thyroid without nodules, masses, tenderness, or enlargement Lungs: Normal respiratory effort and clear to auscultation Cardio: Regular rate and rhythm, normal S1 and S2, no murmur, no rub Abdomen: Soft, non-distended, non-tender. no G/R/S/Masses Musculoskeletal: No deformity or scoliosis noted. Normal range of motion. Joints normal. No erythema, edema, effusion, or ecchymosis Extremity: No clubbing, cyanosis, edema, or deformity, with normal ROM in both upper and lower bilateral extremities Neurologic: Grossly normal Skin: No rashes, ulcerations, or suspicious lesions Mental Status: Alert and oriented x3. Normal mood and affect Assessment/Plan 1. HTN (hypertension) (I10: Essential (primary) hypertension) Good control with diet and exercise, amlodipine 5 mg p.o. daily, lisinopril 20 mg p.o. daily Ordered: Basic Metabolic Panel CBC w/ Auto Diff 2. Familial hypercholesteremia (E78.01: Familial hypercholesterolemia) Diet and exercise Ordered: Complex E&M Add on G2211 Hepatic Function Panel Lipid Panel 3. Class 2 severe obesity due to excess calories with serious comorbidity and body mass index (BMI) of 39.0 to 39.9 in adult (E66.01: Morbid (severe) obesity due to excess calories) Diet and exercise and BMI goal of 25' The standard range for ages 18 and older is >=18.5 and < 25 kg/m2. Your BMI today was above this range, this falls in the overweight to obese category and there are medical benefits to weight loss. We can offer counselling, referral, and/or medical support in addressing this problem. Your BMI and weight management will be followed at subsequent visits. Ordered: Basic Metabolic Panel CBC w/ Auto Diff Hepatic Function Panel HgbA1c Lipid Panel 4. Chronic GERD (K21.9: Gastro-esophageal reflux disease without esophagitis) Diet and exercise with omeprazole 20 mg p.o. daily Ordered: Complex E&M Add on G2211 5. Frontal sinusitis (J32.1: Chronic frontal sinusitis) Ordered: amoxicillin-clavulanate, = 1 tab(s), Oral, q12hr, X 10 day(s), # 20 tab(s), Refills(s) 0, Pharmacy: [facility]/pharmacy #[id number], 162, cm, 06/10/23 7:40:00 EDT, Height/Length Dosing, 103.5, kg, 06/10/23 7:40:00 EDT, Weight Dosing fluticasone nasal, 2 spray(s), Nasal, Daily, 16 gram, Refill(s) 0, each nostril, [id number], 162, cm, 06/10/23 7:40:00 EDT, Height/Length Dosing, 103.5, kg, 06/10/23 7:40:00 EDT, Weight Dosing 6. Fasting hyperglycemia (R73.01: Impaired fasting glucose) Augmentin and Flonase Ordered: HgbA1c 7. Well adult health check (Z00.00: Encounter for general adult medical examination without abnormal findings) Dey blood work Ordered: Basic Metabolic Panel CBC w/ Auto Diff Hepatic Function Panel HgbA1c Lipid Pane (more content not included)... [facility] Comment on above: Result Comment: Electronically Signed By : Dre HENDRICKS DO, FAAFP\tracy\Date and Time Signed: 06/10/23 08:06 EDT Patient Educationon 06-10-19 Patient Education Nephrology Cooking With Less Salt Cooking with less salt is one way to reduce the amount of sodium you get from food. Sodium is one of the elements that make up salt. It is found naturally in foods and is also added to certain foods. Depending on your condition and overall health, your health care provider or dietitian may recommend that you reduce your sodium intake. Most people should have less than 2,300 milligrams (mg) of sodium each day. If you have high blood pressure (hypertension), you may need to limit your sodium to 1,500 mg each day. Follow the tips below to help reduce your sodium intake. What are tips for eating less sodium? Reading food labels ? Check the food label before buying or using packaged ingredients. Always check the label for the serving size and sodium content. ? Look for products with no more than 140 mg of sodium in one serving. ? Check the % Daily Value column to see what percent of the daily recommended amount of sodium is provided in one serving of the product. Foods with 5% or less in this column are considered low in sodium. Foods with 20% or higher are considered high in sodium. ? Do not choose foods with salt as one of the first three ingredients on the ingredients list. If salt is one of the first three ingredients, it usually means the item is high in sodium. Shopping ? Buy sodium-free or low-sodium products. Look for the following words on food labels: ? Low-sodium. ? Sodium-free. ? Reduced-sodium. ? No salt added. ? Unsalted. ? Always check the sodium content even if foods are labeled as low-sodium or no salt added. ? Buy fresh foods. Cooking ? Use herbs, seasonings without salt, and spices as substitutes for salt. ? Use sodium-free baking soda when baking. ? [place], braise, or roast foods to add flavor with less salt. ? Avoid adding salt to pasta, rice, or hot cereals. ? Drain and rinse canned vegetables, beans, and meat before use. ? Avoid adding salt when cooking sweets and desserts. ? Cook with low-sodium ingredients. What foods are high in sodium? Vegetables Regular canned vegetables (not low-sodium or reduced-sodium). Sauerkraut, pickled vegetables, and relishes. Olives. [place] fries. Onion rings. Regular canned tomato sauce and paste. Regular tomato and vegetable juice. Frozen vegetables in sauces. Grains Instant hot cereals. Bread stuffing, pancake, and biscuit mixes. Croutons. Seasoned rice or pasta mixes. Noodle soup cups. Boxed or frozen macaroni and cheese. Regular salted crackers. Self-rising flour. Rolls. Bagels. Flour tortillas and wraps. Meats and other proteins Meat or fish that is salted, canned, smoked, cured, spiced, or pickled. This includes arteaga, ham, sausages, hot dogs, corned beef, chipped beef, meat loaves, salt pork, jerky, pickled romero, anchovies, regular canned tuna, and sardines. Salted nuts. Dairy Processed cheese and cheese spreads. Cheese curds. Blue cheese. Feta cheese. String cheese. Regular cottage cheese. Buttermilk. Canned milk. The items listed above may not be a complete list of foods high in sodium. Actual amounts of sodium may be different depending on processing. Contact a dietitian for more information. What foods are low in sodium? Fruits Fresh, frozen, or canned fruit with no sauce added. Fruit juice. Vegetables Fresh or frozen vegetables with no sauce added. No salt added canned vegetables. No salt added tomato sauce and paste. Low-sodium or reduced-sodium tomato and vegetable juice. Grains Noodles, pasta, quinoa, rice. Shredded or puffed wheat or puffed rice. Regular or quick oats (not instant). Low-sodium crackers. Low-sodium bread. Whole-grain bread and whole-grain pasta. Unsalted popcorn. Meats and other proteins Fresh or frozen whole meats, poultry (not injected with sodium), and fish with no sauce added. Unsalted nuts. Dried peas, beans, and lentils without added salt. Unsalted canned beans. Eggs. Unsalted nut butters. Low-sodium canned tuna or chicken. Dairy Milk. Soy milk. Yogurt. Low-sodium cheeses, such as [place], [place], mozzarella, and ricotta. Sherbet or ice cream (keep to ? cup per serving). Cream cheese. Fats and oils Unsalted butter or margarine. Other foods Homemade pudding. Sodium-free baking soda and baking powder. Herbs and spices. Low-sodium seasoning mixes. Beverages Coffee and tea. Carbonated beverages. The items listed above may not be a complete list of foods low in sodium. Actual amounts of sodium may be different depending on processing. Contact a dietitian for more information. What are some salt alternatives when cooking? The following are herbs, seasonings, and spices that can be used instead of salt to flavor your food. Herbs should be fresh or dried. Do not choose packaged mixes. Next to the name of the herb, spice, or seasoning are some examples of foods you can pair it with. Herbs ? [place] leaves ? Soups, meat and vegetable dishes, (more content not included)... [facility] Patient Education Nutrition DASH Eating Plan DASH stands for Dietary Approaches to Stop Hypertension. The DASH eating plan is a healthy eating plan that has been shown to: ? Reduce high blood pressure (hypertension). ? Reduce your risk for type 2 diabetes, heart disease, and stroke. ? Help with weight loss. What are tips for following this plan? Reading food labels ? Check food labels for the amount of salt (sodium) per serving. Choose foods with less than 5 percent of the Daily Value of sodium. Generally, foods with less than 300 milligrams (mg) of sodium per serving fit into this eating plan. ? To find whole grains, look for the word whole as the first word in the ingredient list. Shopping ? Buy products labeled as low-sodium or no salt added. ? Buy fresh foods. Avoid canned foods and pre-made or frozen meals. Cooking ? Avoid adding salt when cooking. Use salt-free seasonings or herbs instead of table salt or sea salt. Check with your health care provider or pharmacist before using salt substitutes. ? Do not holden foods. Cook foods using healthy methods such as baking, boiling, grilling, roasting, and broiling instead. ? Cook with heart-healthy oils, such as olive, canola, avocado, soybean, or sunflower oil. Meal planning ? Eat a balanced diet that includes: ? 4 or more servings of fruits and 4 or more servings of vegetables each day. Try to fill one-half of your plate with fruits and vegetables. ? 6?8 servings of whole grains each day. ? Less than 6 oz (170 g) of lean meat, poultry, or fish each day. A 3-oz (85-g) serving of meat is about the same size as a deck of cards. One egg equals 1 oz (28 g). ? 2?3 servings of low-fat dairy each day. One serving is 1 cup (237 mL). ? 1 serving of nuts, seeds, or beans 5 times each week. ? 2?3 servings of heart-healthy fats. Healthy fats called omega-3 fatty acids are found in foods such as walnuts, flaxseeds, fortified milks, and eggs. These fats are also found in cold-water fish, such as sardines, salmon, and mackerel. ? Limit how much you eat of: ? Canned or prepackaged foods. ? Food that is high in trans fat, such as some fried foods. ? Food that is high in saturated fat, such as fatty meat. ? Desserts and other sweets, sugary drinks, and other foods with added sugar. ? Full-fat dairy products. ? Do not salt foods before eating. ? Do not eat more than 4 egg yolks a week. ? Try to eat at least 2 vegetarian meals a week. ? Eat more home-cooked food and less restaurant, buffet, and fast food. Lifestyle ? When eating at a restaurant, ask that your food be prepared with less salt or no salt, if possible. ? If you drink alcohol: ? Limit how much you use to: ? 0?1 drink a day for women who are not . ? 0?2 drinks a day for men. ? Be aware of how much alcohol is in your drink. In the [place] one drink equals one 12 oz bottle of beer (355 mL), one 5 oz glass of wine (148 mL), or one 1? oz glass of hard liquor (44 mL). General information ? Avoid eating more than 2,300 mg of salt a day. If you have hypertension, you may need to reduce your sodium intake to 1,500 mg a day. ? Work with your health care provider to maintain a healthy body weight or to lose weight. Ask what an ideal weight is for you. ? Get at least 30 minutes of exercise that causes your heart to beat faster (aerobic exercise) most days of the week. Activities may include walking, swimming, or biking. ? Work with your health care provider or dietitian to adjust your eating plan to your individual calorie needs. What foods should I eat? Fruits All fresh, dried, or frozen fruit. Canned fruit in natural juice (without added sugar). Vegetables Fresh or frozen vegetables (raw, steamed, roasted, or grilled). Low-sodium or reduced-sodium tomato and vegetable juice. Low-sodium or reduced-sodium tomato sauce and tomato paste. Low-sodium or reduced-sodium canned vegetables. Grains Whole-grain or whole-wheat bread. Whole-grain or whole-wheat pasta. Brown rice. Oatmeal. Quinoa. Bulgur. Whole-grain and low-sodium cereals. Tati bread. Low-fat, low-sodium crackers. Whole-wheat flour tortillas. Meats and other proteins Skinless chicken or turkey. Ground chicken or turkey. Pork with fat trimmed off. Fish and seafood. Egg whites. Dried beans, peas, or lentils. Unsalted nuts, nut butters, and seeds. Unsalted canned beans. Lean cuts of beef with fat trimmed off. Low-sodium, lean precooked or cured meat, such as sausages or meat loaves. Dairy Low-fat (1%) or fat-free (skim) milk. Reduced-fat, low-fat, or fat-free cheeses. Nonfat, low-sodium ricotta or cottage cheese. Low-fat or nonfat yogurt. Low-fat, low-sodium cheese. Fats and oils Soft margarine without trans fats. Vegetable oil. Reduced-fat, low-fat, or light mayonnaise and salad dressings (reduced-sodium). Canola, safflower, olive, avocado, soybean, and sunflower oils. Avocado. Seasonings and condiments Herbs. Spices. Seasoni (more content not included)... [facility] Population Healthon 06-10-19 Population Health [id number] [facility] Ambulatory Visit Summaryon 0 12-10-2022 Ambulatory Visit Summary [place] :1950 Visit Date:12/10/2022 Ambulatory Visit Instructions Your Diagnosis HTN (hypertension) Morbid obesity Familial hypercholesteremia Osteoarthritis of both hands Chronic GERD Immunization due BMI 38.0-38.9,adult Obesity due to excess calories Bilateral shoulder pain Fasting hyperglycemia Neck pain, chronic Pain in left shoulder Primary osteoarthritis, left hand Your Care Team Attending Physician - Dre HENDRICKS DO, FAAFP Primary Care Physician - Dre HENDRICKS DO, FAAFP This Is Your Medications List naproxen (naproxen 500 mg Tab) Contact prescribing physician if questions or concerns amlodipine (amLODIPine 5 mg Tab) lisinopril (lisinopril 20 mg Tab) omeprazole (omeprazole 20 mg Cap-DR) Procedures Performed Colonoscopy (12/30/2016), section, Gallbladder, Tonsillectomy. Discharge Vitals Heart Rate (Peripheral) 80 Respiratory Rate 16 Blood Pressure 120/84 Height 162 cm Height 64 in Weight 100 kg Weight 220 lb BMI 38.1 What to do next You Need to Schedule the Following Appointments Follow Up with Dre HENDRICKS DO, FAAFP, [facility]HTYN, PED When: In 6 months Where: [address], [facility] [place] [place] [address]- Medications What How Much When Why Instructions Changed naproxen (naproxen 500 mg Tab) 1 Tablets By Mouth 2 times a day as needed for Pain Bilateral shoulder pain Neck pain, chronic Pickup at [facility]/pharmacy #[id number] Unchanged amlodipine (amLODIPine 5 mg Tab) 1 Tablets By Mouth Every day Contact prescribing physician if questions or concerns Unchanged lisinopril (lisinopril 20 mg Tab) 20 Milligram By Mouth Every day Contact prescribing physician if questions or concerns Unchanged omeprazole (omeprazole 20 mg Cap-DR) 20 Milligram By Mouth Every day Contact prescribing physician if questions or concerns Pharmacy Information [facility]/pharmacy #[id number]: [address] [place], [place] [id number] [phone] Allergies No Known Allergies No Known Medication Allergies Problems Ongoing - Any problem that you are currently receiving treatment for. Bilateral shoulder pain BMI 38.0-38.9,adult Chronic GERD Familial hypercholesteremia Fasting hyperglycemia Fatigue HTN (hypertension) Low serum vitamin D Lumbosacral pain Menopause Morbid obesity Neck pain, chronic Obesity due to excess calories Osteoarthritis of both hands Primary ovarian failure Screening mammogram for breast cancer Historical - Any problem that you are no longer receiving treatment for. Screening mammogram, encounter for Education Materials Budget-Friendly Healthy Eating There are many ways to save money at the grocery store and continue to eat healthy. You can be successful if you: ? Plan meals according to your budget. ? Make a grocery list and only purchase food according to your grocery list. ? Prepare food yourself at home. What are tips for following this plan? Reading food labels ? Compare food labels between brand name foods and the store brand. Often the nutritional value is the same, but the store brand is lower cost. ? Look for products that do not have added sugar, fat, or salt (sodium). These often cost the same but are healthier for you. Products may be labeled as: ? Sugar-free. ? Nonfat. ? Low-fat. ? Sodium-free. ? Low-sodium. ? Look for lean ground beef labeled as at least 92% lean and 8% fat. Shopping ? Buy only the items on your grocery list and go only to the areas of the store that have the items on your list. ? Use coupons only for foods and brands you normally buy. Avoid buying items you wouldn't normally buy simply because they are on sale. ? Check online and in newspapers for weekly deals. ? Buy healthy items from the bulk bins when available, such as herbs, spices, flour, pasta, nuts, and dried fruit. ? Buy fruits and vegetables that are in season. Prices are usually lower on in-season produce. ? Look at the unit nair on the nair tag. Use it to compare different brands and sizes to find out which item is the best deal. ? Choose healthy items that are often low-cost, such as carrots, potatoes, apples, bananas, and oranges. Dried or canned beans are a low-cost protein source. ? Buy in bulk and freeze extra food. Items you can buy in bulk include meats, fish, poultry, frozen fruits, and frozen vegetables. ? Avoid buying wzrhn-ab-mud foods, such as pre-cut fruits and vegetables and pre-made salads. ? If possible, shop around to discover where you can find the best prices. Consider other retailers such as [employer], larger wholesale stores, local fruit and vegetable stands, and farmers markets. ? Do not shop when you are hungry. If you shop while hungry, it may be hard to stick to your list and budget. ? Resist impulse buying. Use your grocery list as your official plan for the w (more content not included)... [facility] Family Medicine Office/Clini c Noteon 12-10-2022 Family Medicine Office/Clinic Note Chief Complaint Pt presents for 6 month check up, would like flu vaccine History of Present Illness Here for follow up Have you had any ER visits or any hospitalizations since last visit? no Are you compliant with your medications and no difficulty affording your medications? yes Do you have side effects from the medication? no Are you compliant with your diet? yes Do you exercise? yes Do you have any of the following symptoms? Chest pain? no Palpitations? no BRYANT/SOB? no Orthopnea? no PND? no Edema? no Have you had any recent cardiopulmonary testing? no Review of Systems PHQ Score Initial Depression Screen Score: 0 ROS - Provider Constitutional: no fever, no chills, no sweats, no weakness. Skin: no Jaundice, no rash, no lesions, no petechiae. ENMT: no ear pain, no sore throat, no congestion, no hoarseness. Respiratory: no shortness of breath, no cough, no orthopnea, no wheezing. Cardiovascular: no chest pain, no palpitations, no edema. Gastrointestinal: no nausea, no vomiting, no diarrhea, no GI bleeding.no constipationnoheartburn Genitourinary: no dysuria, no hematuria, no discharge, no pain.nofreq/urgency Musculoskeletal: no back pain, no trauma.nojoint pain Neurologic: no headache, no dizziness, no numbness, no weakness. Psychiatric: no sleeping problems, no irritability, no mood swings/depression. Heme/Lymph: no bleeding tendency, no bruising tendency, no petechiae, no swollen lymph nodes no Allergy/Imunology no seasonal allergies, no food allergies, no recurrent infections, no impaired immunity. Additional ROS info: Except as noted in the above Review of Systems and in the History of Present Illness all other systems have been reviewed and are negative or noncontributory. Physical Exam Vitals & Measurements HR: 80(Peripheral) RR: 16 BP: 120/84 SpO2: 99% HT: 64 in HT: 162 cm WT: 100 kg WT: 220 lb BMI: 38.1 General: Well developed, well nourished, in no acute distress Mouth: Mucous membranes moist. Normal oropharynx, and posterior pharynx without lesions or exudates. Tongue normal Neck: Neck supple. No masses or palpable cervical nodes. Trachea midline. Thyroid without nodules, masses, tenderness, or enlargement Lungs: Normal respiratory effort and clear to auscultation Cardio: Regular rate and rhythm, normal S1 and S2, no murmur, no rub Abdomen: Soft, non-distended, non-tender. no G/R/S/Masses Musculoskeletal: No deformity or scoliosis noted. Normal range of motion. Joints normal. No erythema, edema, effusion, or ecchymosis Extremity: No clubbing, cyanosis, edema, or deformity, with normal ROM in both upper and lower bilateral extremities Neurologic: Grossly normal Skin: No rashes, ulcerations, or suspicious lesions Mental Status: Alert and oriented x3. Normal mood and affect Assessment/Plan 1. HTN (hypertension) (I10: Essential (primary) hypertension) Good control with amlodipine 5 mg p.o. daily and lisinopril 20 mg p.o. daily 2. Morbid obesity (E66.01: Morbid (severe) obesity due to excess calories) Diet and exercise 3. Familial hypercholesteremia (E78.01: Familial hypercholesterolemia) Diet and exercise only per pt , I concur 4. Osteoarthritis of both hands (M19.041: Primary osteoarthritis, right hand) Diet and exercise as well as Naprosyn 500 mg p.o. twice daily as needed 5. Chronic GERD (K21.9: Gastro-esophageal reflux disease without esophagitis) Omeprazole working well 6. Immunization due (Z23: Encounter for immunization) Flu shot Ordered: influenza virus vaccine, inactivated, 0.7 mL, Injection, IntraMuscular, Once, Stop date 12/10/22 8:00:00 EDT, Routine, Start date 12/10/22 8:00:00 EDT Admin flu virus vaccine [id number] 7. BMI 38.0-38.9,adult (Z68.38: Body mass index [BMI] 38.0-38.9, adult) The standard range for ages 18 and older is >=18.5 and < 25 kg/m2. Your BMI today was above this range, this falls in the overweight to obese category and there are medical benefits to weight loss. We can offer counselling, referral, and/or medical support in addressing this problem. Your BMI and weight management will be followed at subsequent visits. 8. Obesity due to excess calories (E66.09: Other obesity due to excess calories) diet and exercise 9. Bilateral shoulder pain (M25.511: Pain in right shoulder) exercise helping. Ordered: naproxen, 500 mg = 1 tab(s), Oral, BID, PRN Pain, # 100 tab(s), Refills(s) 1, Pharmacy: [id number], 162, cm, 12/10/22 7:39:00 EDT, Height/Length Dosing, 100, kg, 12/10/22 7:39:00 EDT, Weight Dosing 10. Fasting hyperglycemia (R73.01: Impaired fasting glucose) diet and exercise Neck pain, chronic (M54.2: Cervicalgia) Ordered: naproxen, 500 mg = 1 tab(s), Oral, BID, PRN Pain, # 100 tab(s), Refills(s) 1, Pharmacy: [id number], 162, cm, 12/10/22 7:39:00 EDT, Height/Length Dosing, 100, kg, 12/10/22 7:39:00 EDT, Weight Dosing Pain in left shoulder (M25.512: Pain in left shoulder) Primary ost (more content not included)... [facility] Comment on above: Result Comment: Electronically Signed By : RUTHIE JOHNSTON FAAFP, Dre Moore\.cami\Date and Time Signed: 12/10/22 08:04 EDT Patient Educationon 12-11-19 Patient Education Nutrition Budget-Friendly Healthy Eating There are many ways to save money at the grocery store and continue to eat healthy. You can be successful if you: ? Plan meals according to your budget. ? Make a grocery list and only purchase food according to your grocery list. ? Prepare food yourself at home. What are tips for following this plan? Reading food labels ? Compare food labels between brand name foods and the store brand. Often the nutritional value is the same, but the store brand is lower cost. ? Look for products that do not have added sugar, fat, or salt (sodium). These often cost the same but are healthier for you. Products may be labeled as: ? Sugar-free. ? Nonfat. ? Low-fat. ? Sodium-free. ? Low-sodium. ? Look for lean ground beef labeled as at least 92% lean and 8% fat. Shopping ? Buy only the items on your grocery list and go only to the areas of the store that have the items on your list. ? Use coupons only for foods and brands you normally buy. Avoid buying items you wouldn't normally buy simply because they are on sale. ? Check online and in newspapers for weekly deals. ? Buy healthy items from the bulk bins when available, such as herbs, spices, flour, pasta, nuts, and dried fruit. ? Buy fruits and vegetables that are in season. Prices are usually lower on in-season produce. ? Look at the unit nair on the nair tag. Use it to compare different brands and sizes to find out which item is the best deal. ? Choose healthy items that are often low-cost, such as carrots, potatoes, apples, bananas, and oranges. Dried or canned beans are a low-cost protein source. ? Buy in bulk and freeze extra food. Items you can buy in bulk include meats, fish, poultry, frozen fruits, and frozen vegetables. ? Avoid buying lipie-aa-pzi foods, such as pre-cut fruits and vegetables and pre-made salads. ? If possible, shop around to discover where you can find the best prices. Consider other retailers such as dollar stores, larger wholesale stores, local fruit and vegetable [employer], and [employer] markets. ? Do not shop when you are hungry. If you shop while hungry, it may be hard to stick to your list and budget. ? Resist impulse buying. Use your grocery list as your official plan for the week. ? Buy a variety of vegetables and fruits by purchasing fresh, frozen, and canned items. ? Look at the top and bottom shelves for deals. Foods at eye level (eye level of an adult or child) are usually more expensive. ? Be efficient with your time when shopping. The more time you spend at the store, the more money you are likely to spend. ? To save money when choosing more expensive foods like meats and dairy: ? Choose cheaper cuts of meat, such as bone-in chicken thighs and drumsticks instead of skinless and boneless chicken. When you are ready to prepare the chicken, you can remove the skin yourself to make it healthier. ? Choose lean meats like chicken or turkey instead of beef. ? Choose canned seafood, such as tuna, salmon, or sardines. ? Buy eggs as a low-cost source of protein. ? Buy dried beans and peas, such as lentils, split peas, or kidney beans instead of meats. Dried beans and peas are a good alternative source of protein. ? Buy the larger tubs of yogurt instead of individual-sized containers. ? Choose water instead of sodas and other sweetened beverages. ? Avoid buying chips, cookies, and other junk food. These items are usually expensive and not healthy. Cooking ? Make extra food and freeze the extras in meal-sized containers or in individual portions for fast meals and snacks. ? Pre-cook on days when you have extra time to prepare meals in advance. You can keep these meals in the fridge or freezer and reheat for a quick meal. ? When you come home from the grocery store, wash, peel, and cut fruits and vegetables so they are ready to use and eat. This will help reduce food waste. Meal planning ? Do not eat out or get fast food. Prepare food at home. ? Make a grocery list and make sure to bring it with you to the store. If you have a smart phone, you could use your phone to create your shopping list. ? Plan meals and snacks according to a grocery list and budget you create. ? Use leftovers in your meal plan for the week. ? Look for recipes where you can cook once and make enough food for two meals. ? Prepare budget-friendly types of meals like stews, casseroles, and stir-holden dishes. ? Try some meatless meals or try no cook meals like salads. ? Make sure that half your plate is filled with fruits or vegetables. Choose from fresh, frozen, or canned fruits and vegetables. If eating canned, remember to rinse them before eating. This will remove any excess salt added for packaging. Summary ? Eating healthy on a budget is possible if you plan your meals according to your budget, purchase according to your budget and grocery list, and prepare food yourself. ? Tips for buyi (more content not included)... [facility] Encounters Encounter Date Encounter Type Care Provider Facility Start: 06-08-2024 ambulatory Dre HENDRICKS Facility: [facility] Start: 12-09-2023 End: 12-09-2023 ambulatory Dre HENDRICKS Facility:[facility] Start: 12-01-2023 End: 12-01-2023 ambulatory Dre HENDRICKS Facility:[facility] Start: 11-03-2023 End: 11-03-2023 ambulatory KVNG BRITO Not Available Start: 10-26-2023 End: 10-26-2023 ambulatory LISSETTE HANSEN Not Available Start: 10-13-2023 End: 10-13-2023 ambulatory KVNG BRITO Not Available Start: 06-10-2023 End: 06-10-2023 ambulatory Dre Oscar HENDRICKS Facility:[facility] Payers Date Payer Category Payer Private Health Insurance [id number] 2016 Medicare [id number] 1950 Unknown [id number] 2.16.84 [id number] 1950 Unknown [id number] 2.16.84 [id number] 1950 Unknown [id number] 2.16.84 [id number] 1950 Unknown [id number] 2.16.8 [id number] 1950 Unknown [id number] 2.16.8 [id number] 1950 Unknown [id number] 2.16.8 [id number] 1950 Unknown [id number] 2.16.8 [id number] 1950 Unknown [id number] 2.16.8 [id number] Clinical Note 12-09-2023 Note Date & Type Note Facility 12-09-2023 Note Patient Education Nutrition Fat and Cholesterol Restricted Eating Plan Eating a diet that limits fat and cholesterol may help lower your risk for heart disease and other conditions. Your body needs fat and cholesterol for basic functions, but eating too much of these things can be harmful to your health. Your health care provider may order lab tests to check your blood fat (lipid) and cholesterol levels. This helps your health care provider understand your risk for certain conditions and whether you need to make diet changes. Work with your health care provider or dietitian to make an eating plan that is right for you. Your plan includes: ? Limit your fat intake to % or less of your total calories a day. This is g of fat per day. ? Limit your saturated fat intake to % or less of your total calories a day. This is g of saturated fat per day. ? Limit the amount of cholesterol in your diet to less than mg a day. ? Eat g of fiber a day. What are tips for following this plan? General guidelines ? If you are overweight, work with your health care provider to lose weight safely. Losing just 5?10% of your body weight can improve your overall health and help prevent diseases such as diabetes and heart disease. ? Avoid: ? Foods with added sugar. ? Fried foods. ? Foods that contain partially hydrogenated oils, including stick margarine, some tub margarines, cookies, crackers, and other baked goods. ? If you drink alcohol: ? Limit how much you have to: ? 0?1 drink a day for women who are not . ? 0?2 drinks a day for men. ? Know how much alcohol is in a drink. In the [place] one drink equals one 12 oz bottle of beer (355 mL), one 5 oz glass of wine (148 mL), or one 1? oz glass of hard liquor (44 mL). Reading food labels ? Check food labels for: ? Trans fats or partially hydrogenated oils. Avoid foods that contain these. ? High amounts of saturated fat. Choose foods that are low in saturated fat (less than 2 g). ? The amount of cholesterol in each serving. ? The amount of fiber in each serving. ? Choose foods with healthy fats, such as: ? Monounsaturated and polyunsaturated fats. These include olive and canola oil, flaxseeds, walnuts, almonds, and seeds. ? [place]-3 fats. These are found in foods such as salmon, mackerel, sardines, tuna, flaxseed oil, and ground flaxseeds. ? Choose grain products that have whole grains. Look for the word whole as the first word in the ingredient list. Cooking ? Cook foods using methods other than frying. Baking, boiling, grilling, and broiling are some healthy options. ? Eat more home-cooked food and less restaurant, buffet, and fast food. ? Avoid cooking using saturated fats. ? Animal sources of saturated fats include meats, butter, and cream. ? Plant sources of saturated fats include palm oil, palm kernel oil, and coconut oil. Meal planning ? At meals, imagine dividing your plate into fourths: ? Fill one-half of your plate with vegetables, green salads, and fruit. ? Fill one-fourth of your plate with whole grains. ? Fill one-fourth of your plate with lean protein foods. ? Eat fish that is high in omega-3 fats at least two times a week. ? Eat more foods that contain fiber, such as whole grains, beans, apples, pears, berries, broccoli, carrots, peas, and barley. These foods help promote healthy cholesterol levels in the blood. What foods should I eat? Fruits All fresh, canned (in natural juice), or frozen fruits. Vegetables Fresh or frozen vegetables (raw, steamed, roasted, or grilled). Green salads. Grains Whole grains, such as whole wheat or whole grain breads, crackers, cereals, and pasta. Unsweetened oatmeal, bulgur, barley, quinoa, or brown rice. [place] or whole wheat flour tortillas. Meats and other proteins Ground beef (85% or leaner), grass-fed beef, or beef trimmed of fat. Skinless chicken or turkey. Ground chicken or turkey. Pork trimmed of fat. All fish and seafood. Egg whites. Dried beans, peas, or lentils. Unsalted nuts or seeds. Unsalted canned beans. Natural nut butters without added sugar and oil. Dairy Low-fat or nonfat dairy products, such as skim or 1% milk, 2% or reduced-fat cheeses, low-fat and fat-free ricotta or cottage cheese, or plain low-fat and nonfat yogurt. Fats and oils Tub margarine without trans fats. Light or reduced-fat mayonnaise and salad dressings. Avocado. [place], canola, sesame, or safflower oils. The items listed above may not be a complete list of foods and beverages you can eat. Contact a dietitian for more information. What foods should I avoid? Fruits Canned fruit in heavy syrup. Fruit in cream or butter sauce. Fried fruit. Vegetables Vegetables cooked in cheese, cream, or butter sauce. Fried vegetables. Grains White bread. White pasta. White rice. Cornbread. Bagels, pastries, and croissants. Crackers and snack foods that contain tr (more content not included)... [facility] Family History No Family History Records FoundNo Family History Records FoundNo Family History Records FoundNo Family History Records FoundNo Family History Records FoundNo Family History Records FoundNo Family History Records FoundNo Family History Records Found Advance Directives No Advanced Directives Records FoundNo Advanced Directives Records FoundNo Advanced Directives Records FoundNo Advanced Directives Records FoundNo Advanced Directives Records FoundNo Advanced Directives Records FoundNo Advanced Directives Records FoundNo Advanced Directives Records Found Additional Source Comments INFORMATION SOURCE (unrecogn ized section and content) DATE CREATED AUTHOR 11/05/2023 [facility] DATE CREATED AUTHOR AUTHOR'S ORGANIZ ATION 12/03/2023 [facility] DATE CREATED AUTHOR AUTHOR'S ORGANIZ ATION 12/04/2023 [facility] DATE CREATED AUTHOR AUTHOR'S ORGANIZ ATION 12/11/2023 [facility] FOR RECORDS PERTAINING TO PATIENTS WHO ARE OR HAVE BEEN ENROLLED IN A CHEMICAL DEPENDENCY/SUBSTANCEABUSE PROGRAM, SOME INFORMATION MAY BE OMITTED. This clinical summary was aggregated from multiple sources. Caution should be exercised in using it in the provision of clinical care. This summary normalizes information from multiple sources, and as a consequence, information in this document may materially change the coding, format and clinical context of patient data. In addition, data may be omitted in some cases. CLINICAL DECISIONS SHOULD BE BASED ON THE PRIMARY CLINICAL RECORDS. [employer] [facility]. provides no warranty or guarantee of the accuracy or completeness of information in this document.
[2023-12-15 06:55] VITALS: PULSE 94; TEMP 35.8; O2SAT 97
[2023-12-15] MEDS: DIAZEPAM 5 MG TABLET PO (07:00)
[2023-12-15] MEDS: PROPARACAINE HCL 0.5% 300 DROP/15 ML BOTTLE OP ×2 (07:05→07:59)
[2023-12-15] MEDS: CYCLOPENTOLATE HCL 1% OP SOL 40 DROP/2 ML BOTTLE OP ×4 (07:06→07:28)
[2023-12-15] MEDS: TROPICAMIDE 1% OP SOL 300 DROP/15 ML BOTTLE OP ×4 (07:06→07:27)
[2023-12-15] MEDS: BESIFLOXACIN HCL 100 DROP DROPS.SUSP OP ×4 (07:07→07:29)
[2023-12-15] MEDS: PHENYLEPHRINE HCL 2.5% OP SOL 40 DROP/2 ML BOTTLE OP ×4 (07:09→07:28)
[2023-12-15 07:23] VITALS: BP 178/105
[2023-12-15] MEDS: LIDOCAINE 2% JELLY 10 ML TOPICAL (07:58)
[2023-12-15] MEDS: BETADINE POVIDONE-IODINE 5% OP SOL 30 ML BOTTLE OP (07:59)
[2023-12-15] MEDS: HYALURONATE SODIUM 16 MG/ML SYRINGE OP (08:07)
[2023-12-15] MEDS: TETRACAINE HCL 0.5% OP SOL 80 DROP/4 ML BOTTLE OP (08:08)
[2023-12-15] MEDS: PHENYLEPHRINE/KETOROLAC 1-0.3% ML VIAL 4 ML IRR (08:08)
[2023-12-15] MEDS: LIDOCAINE HCL 1% PF 20 MG/2 ML VIAL INJ (08:08)
[2023-12-15] MEDS: CEFUROXIME SODIUM 750 MG, 0.9 % SODIUM CHLORIDE 16.3 ML OP (08:09)
[2023-12-15 08:11] VITALS: BP 188/116; BP 210/93; PULSE 92; O2SAT 100
[2023-12-15] MEDS: APRACLONIDINE HCL 0.5% SOL 100 DROP/5 ML BOTTLE OP (08:19)
[2023-12-15] MEDS: PREDNISOLONE ACETATE OP 1% SUSP 100 DROPS/5 ML 1 DROP OP (08:19)
== END 2023-12-15 08:35 | disposition home or self-care (01) ==
LOC: SURGOUT 06:41
PROVIDERS: Visit Provider Ophthalmology
PROC: (CPT 66984; principal; 2023-12-15 08:00)
DX: H25.11 Age-related nuclear cataract, right eye (principal)
CPT/HCPCS: 66984; J0697; V2630